=== PATIENT | female | born 1990 | race Caucasian/White ===

== ENCOUNTER 2017-07-24 22:00 | Emergency (ER) | payer BC, OTHER ==
[~2017-07-24] VITALS: Ht 170.2 cm; Wt 130.5 kg
[2017-07-24 22:02] VITALS: TEMP 36.5; Ht 170.2 cm; Wt 130.5 kg
[2017-07-24] MEDS ORDERED: ALUMINUM/MAGNESIUM SUSP 30 ML UDC PO STA (22:15)
[2017-07-24] MEDS ORDERED: LIDOCAINE HCL 2% VISC SOLN 20 ML UDC PO STA (22:15)
[2017-07-24] MEDS ORDERED: HYDR12.55 PO (22:56)
[2017-07-24] MEDS ORDERED: PLEXUS PO (22:56)
[2017-07-24] MEDS ORDERED: BCPILLS PO (22:56)
[2017-07-24 23:34] LABS: BASO % 0.2 %; BASO ABS # 0.02 K/uL (0-0.2); COMPLETE YES; EOS % 4.5 %; HEMATOCRIT 37.7 % (37-47); IG% 0.5 %; LYMPH % 19.9 %; LYMPH ABS # 1.72 K/uL (1.2-3.4); MEAN CELL VOLUME 86.5 fL (80-100); MEAN CORPUSCULAR HEMOGLOBIN 29.8 pg (25-34); MEAN CORPUSCULAR HGB CONC 34.5 g/dl (32-36); MEAN PLATELET VOLUME 10.1 fL (7.4-10.4); MONO % 8.4 %; NEUT % 66.5 %; PLATELET COUNT 192 K/uL (130-400); RED BLOOD COUNT 4.36 M/uL (4.2-5.4); WHITE BLOOD COUNT 8.64 K/uL (4.8-10.8)
[2017-07-24 23:47] LABS: PREG INTERNAL NEGATIVE QC NEG CLEAR BACKGROUND; PREG INTERNAL POSITIVE QC POS CONTROL LINE
[2017-07-24 23:55] LABS: BUN/CREATININE RATIO 11.9 (10-20); CALCIUM 8.9 mg/dl (8.5-10.1); CREATININE 0.88 mg/dl (0.60-1.20)
[2017-07-24] MEDS ORDERED: KETOROLAC TROMETHAMINE 30 MG/ML VIAL IV STA (23:55)
[2017-07-24] MEDS ORDERED: SUCRALFATE 1 GM/10 ML UDC PO STA (23:55)
[2017-07-25 00:03] LABS: URINE APPEARANCE CLOUDY (CLEAR); URINE BILIRUBIN NEG (NEG); URINE COLOR YELLOW; URINE EPITHELIAL CELL AUTO >30 /lpf (0-5); URINE NITRITE NEG (NEG); URINE PH 7.5 (4.5-7.5); URINE SPECIFIC GRAVITY 1.016 (1.000-1.030); UROBILINOGEN NEG (NEG); ZZUR CULT IF INDIC CLEAN CATCH YES
[2017-07-25 00:17] LABS: MANUAL MICROSCOPIC REQUIRED? NO; REVIEW REQ? NO
--- NOTE | 2017-07-25 00:53 | EMERGENCY ROOM VISIT NOTE ---
History First contact with patient: 22:07 Chief Complaint: ABDOMINAL PAIN Stated Complaint: ABD PAIN,VOMITING Nursing Triage Summary: pt c/o uppper abd pain with n/v History of Present Illness The patient is a 27 year old female who presents to the Emergency Room with complaints of epigastric discomfort with nausea and vomiting for the past day. She's had this problem before. She was told as gastritis. Patient complains of a few episodes of vomiting that is nonbloody non-black non-bilious in nature. Patient describes the abdominal pain as discomfort, 5 out of 10 to the epigastric region. It does not radiate. Nothing makes it better or worse. Patient denies chest pain, dyspnea, fever, chills, diarrhea, back pain, urinary symptoms. Review of Systems See HPI for pertinent positives & negatives. A total of 10 systems reviewed and were otherwise negative. Past Medical/Surgical History Hypertension Social History Smoking Status: Never Smoker Smokeless Tobacco Use: No Alcohol Use: none Drug Use: none Current/Historical Medications Scheduled Control Pills ( Control Pills), 1 TAB PO DAILY Hydrochlorothiazide (Hydrochlorothiazide), 12.5 MG PO DAILY [Plexus], 1 DOSE PO UD Physical Exam Vital Signs Date Time Temp Pulse Resp B/P (MAP) Pulse Ox O2 Delivery O2 Flow Rate FiO2 07/24/17 23:35 77 20 147/98 97 Room Air 07/24/17 22:02 36.5 95 18 150/86 97 Room Air Physical Exam VITALS: Vitals are noted on the nurse's note and reviewed by myself. Vital signs stable. GENERAL: Pleasant female, in no acute distress, nondiaphoretic, well-developed well-nourished. SKIN: The skin was without rashes, erythema, edema, or bruising. There is no tenting of the skin. Capillary reflex less than 2 seconds. HEAD: Normocephalic atraumatic. EARS: External auditory canals clear, tympanic membranes pearly barajas without erythema or effusion bilaterally. EYES: Pupils equal round and reactive to light and accommodation. Conjunctivae without injection, sclerae without icterus. Extraocular movements intact. NOSE: Patent, turbinates without inflammation or discharge. MOUTH: Mucous membranes moist. Pharynx without erythema or exudate. Uvula midline. Airway patent. Tongue does not deviate. NECK: Supple without nuchal rigidity. No lymphadenopathy. No thyromegaly. Cervical spine is nontender. No JVD. HEART: Regular rate and rhythm without murmurs gallops or rubs. LUNGS: Clear to auscultation bilaterally without wheezes, rales or rhonchi. No dullness to percussion. No retractions or accessory muscle use. ABDOMEN: Positive bowel sounds x 4. Normal tympanic percussion. Soft, protuberant, obese, tender to palpation epigastric region, no CVA tenderness, without masses or organomegaly. Cobos sign negative. No guarding or rebound tenderness. MUSCULOSKELETAL: No muscle atrophy, erythema, or edema noted. NEURO: Patient was alert and oriented to person place and time. Normal sensation to light and sharp touch. No focal neurological deficits. Medical Decision & Procedures Laboratory Results 07/24/17 23:16 Red Blood Count 4.36, Mean Corpuscular Volume 86.5, Mean Corpuscular Hemoglobin 29.8, Mean Corpuscular Hemoglobin Concent 34.5, Mean Platelet Volume 10.1, Neutrophils (%) (Auto) 66.5, Lymphocytes (%) (Auto) 19.9, Monocytes (%) (Auto) 8.4, Eosinophils (%) (Auto) 4.5, Basophils (%) (Auto) 0.2, Neutrophils # (Auto) 5.74, Lymphocytes # (Auto) 1.72, Monocytes # (Auto) 0.73, Eosinophils # (Auto) 0.39, Basophils # (Auto) 0.02 07/24/17 23:16 Test 07/24/17 23:02 07/24/17 23:16 07/24/17 23:36 Human Chorionic Gonadotropin, Qual NEG (NEG) White Blood Count 8.64 K/uL (4.8-10.8) Red Blood Count 4.36 M/uL (4.2-5.4) Hemoglobin 13.0 g/dL (12.0-16.0) Hematocrit 37.7 % (37-47) Mean Corpuscular Volume 86.5 fL (80-100) Mean Corpuscular Hemoglobin 29.8 pg (25-34) Mean Corpuscular Hemoglobin Concent 34.5 g/dl (32-36) Platelet Count 192 K/uL (130-400) Mean Platelet Volume 10.1 fL (7.4-10.4) Neutrophils (%) (Auto) 66.5 % Lymphocytes (%) (Auto) 19.9 % Monocytes (%) (Auto) 8.4 % Eosinophils (%) (Auto) 4.5 % Basophils (%) (Auto) 0.2 % Neutrophils # (Auto) 5.74 K/uL (1.4-6.5) Lymphocytes # (Auto) 1.72 K/uL (1.2-3.4) Monocytes # (Auto) 0.73 K/uL (0.11-0.59) Eosinophils # (Auto) 0.39 K/uL (0-0.5) Basophils # (Auto) 0.02 K/uL (0-0.2) RDW Standard Deviation 42.5 fL (36.4-46.3) RDW Coefficient of Variation 13.4 % (11.5-14.5) Immature Granulocyte % (Auto) 0.5 % Immature Granulocyte # (Auto) 0.04 K/uL (0.00-0.02) Anion Gap 5.0 mmol/L (3-11) Est Creatinine Clear Calc Drug Dose 136.4 ml/min Estimated GFR () 105.1 Estimated GFR (Non- 90.7 BUN/Creatinine Ratio 11.9 (10-20) Calcium Level 8.9 mg/dl (8.5-10.1) Total Bilirubin 0.5 mg/dl (0.2-1) Direct Bilirubin 0.1 mg/dl (0-0.2) Aspartate Amino Transf (AST/SGOT) 34 U/L (15-37) Alanine Aminotransferase (ALT/SGPT) 56 U/L (12-78) Alkaline Phosphatase 65 U/L (45-117) Total Protein 7.3 gm/dl (6.4-8.2) Albumin 3.2 gm/dl (3.4-5.0) Lipase 120 U/L (73-393) Urine Color YELLOW Urine Appearance CLOUDY (CLEAR) Urine pH 7.5 (4.5-7.5) Urine Specific [place] 1.016 (1.000-1.030) Urine Protein NEG (NEG) Urine Glucose (UA) NEG (NEG) Urine Ketones NEG (NEG) Urine Occult Blood NEG (NEG) Urine Nitrite NEG (NEG) Urine Bilirubin NEG (NEG) Urine Urobilinogen NEG (NEG) Urine Leukocyte Esterase MODERATE (NEG) Urine WBC (Auto) 1-5 /hpf (0-5) Urine RBC (Auto) 5-10 /hpf (0-4) Urine Hyaline Casts (Auto) 0 /lpf (0-5) Urine Epithelial Cells (Auto) >30 /lpf (0-5) Urine Bacteria (Auto) 1+ (NEG) Medications Administered Medications (Trade) Dose Ordered Sig/Tahir Route Start Time Stop Time Status Last Admin Dose Admin Lidocaine HCl (Viscous Lidocaine 2% Soln) 10 ml NOW STAT PO 07/24/17 22:15 07/24/17 22:16 DC 07/24/17 22:15 10 ML Al Hydroxide/Mg Hydroxide (Maalox Susp) 30 ml NOW STAT PO 07/24/17 22:15 07/24/17 22:16 DC 07/24/17 22:15 30 ML Sucralfate (Carafate Susp) 1 gm NOW STAT PO 07/24/17 23:55 07/24/17 23:57 DC 07/25/17 00:14 1 GM Ketorolac Tromethamine (Toradol Inj) 30 mg NOW STAT IV 07/24/17 23:55 07/24/17 23:57 DC 07/25/17 00:08 30 MG ED Course Prior records/ancillary studies reviewed. Triage Nursing notes reviewed. Additional history obtained from family. The patient's history was concerning for abdominal pain. Differential diagnosis: Etiologies such as GERD, appendicitis, diverticulitis, PUD, biliary pathology, UTI, pancreatitis, obstruction, mesenteric ischemia, aortic pathology, infections, inflammatory bowel disease, renal colic, as well as others were entertained. Physical examination findings: As above. ER treatment provided: GI cocktail, IV fluids On reassessment the patient felt better. Diagnostics interpreted by me: The labs revealed hyperglycemia without DKA. Negative urine. Negative hCG Exam and history seem consistent with gastritis. Patient was informed of her high blood sugar and advised to see family care for further workup for possible diabetes. Patient did not have acute abdomen on exam. She is well-appearing. She felt much better after being medicated as above. She is advised follow-up family care in a few days and to take medications as directed. She is advised to return to the ER immediately for abdominal pain, fevers, vomiting, black or blood in her stool, worsening signs or symptoms or as needed. By the evaluation outlined above emergent etiologies such as appendicitis, diverticulitis, PUD, biliary pathology, UTI, pancreatitis, obstruction, mesenteric ischemia, aortic pathology, infections, inflammatory bowel disease, renal colic, as well as others were deemed relatively unlikely. The pt informed about the findings as listed above. All questions were answered and pleased with the treatment. Return instructions were outlined and the patient was discharged in stable condition. Outpatient prescription management: Protonix Referral: The patient was referred back to their primary care physician for follow-up in 2 to 3 days for a recheck of the current condition. Case reviewed with my attending. Medical Decision As above Medication Reconcilliation Current Medication List: was personally reviewed by me Blood Pressure Screening Patient's blood pressure: Elevated blood pressure Blood pressure disposition: Elevated BP felt to be situational Impression Primary Impression: Gastritis Additional Impressions: Epigastric abdominal pain Hyperglycemia Departure Information Dispostion Home / Self-Care Condition GOOD Referrals Adela Denny D.O. (PCP) Patient Instructions My [facility] Additional Instructions Protonix 40 m tablet daily for next 2 weeks. Take this on an empty stomach. Try Maalox or Zantac for breakthrough symptoms for reflux. Avoid large meals. Avoid acidic foods. Rest and drink plenty of fluids as tolerated. Continue current medications. Avoid strenuous activities and anything that worsens your pain. Resume normal activities once your symptoms resolve. Return to the ER immediately for worsening or persistent chest pain, abdominal pain, black or blood in your stools, vomiting, fevers, chest pains, difficulty breathing, worsening of your condition, or as needed. Follow up with your primary physician in 2-3 days for a recheck of your current condition. Problem Qualifiers
[2017-07-25] MEDS ORDERED: PANT40TA PO (00:54)
[2017-07-25] MEDS ORDERED: PANTOprazole SOD 40 MG TAB PO STA (00:55)
[2017-07-25 01:06] VITALS: BP 145/78; PULSE 81; O2SAT 97
== END 2017-07-25 01:06 | disposition home or self-care (01) ==
LOC: C.EDB 22:02 → C.EDC 07-25 01:06
DX: K29.70 Gastritis, unspecified, without bleeding (principal); R10.13 Epigastric pain; R73.9 Hyperglycemia, unspecified; I10 Essential (primary) hypertension